=== PATIENT | female | born 1950 | race Asian ===

== ENCOUNTER → 2020-12-17 | Day surgery (SDC) | payer MEDICARE, OTHER ==
[~2020-12-17] MED LIST: CALCIUM + D PO; FENTANYL CITRATE/PF 100MCG/2 ML INJ ONE; MIDAZOLAM HCL 2 MG/2 ML VIAL ONE; OR PHACO EYE KIT ONE; PREOP PHACO EYE KIT ONE; VITAMIN D310 MCG PO
[2020-12-17 16:15] VITALS: BP 130/70
== END | disposition home or self-care (01) ==
LOC: OR 11:26
PROVIDERS: ATTEND Ophthalmology
DX: H25.042 Posterior subcapsular polar age-related cataract, left eye (principal); M81.0 Age-related osteoporosis without current pathological fracture; R91.1 Solitary pulmonary nodule; Z88.0 Allergy status to penicillin; Z85.3 Personal history of malignant neoplasm of breast
CPT/HCPCS: 66984; J2250; J3010; V2632